=== PATIENT | female | born 1965 | race Caucasian/White ===

== ENCOUNTER → 2021-07-13 14:28 | Outpatient (CLI) | payer OTHER ==
[~2021-07-13 14:28] MED LIST: COZAAR25 MG PO; SYNTHROID137 MCG PO; VYTORIN 10-20 M1 TAB PO
== END | disposition home or self-care (01) ==
LOC: NUCLEAR 06-18 13:00
PROVIDERS: ATTEND Obstetrics & Gynecology
DX: M81.0 Age-related osteoporosis without current pathological fracture (principal)

== ENCOUNTER 2021-10-26 11:38 | Outpatient (CLI) | payer OTHER | END 2021-10-26 11:48 | disposition home or self-care (01) | LOC: RAD 11:38 | DX: M46.96 Unspecified inflammatory spondylopathy, lumbar region (principal); M17.12 Unilateral primary osteoarthritis, left knee ==

== ENCOUNTER 2023-07-08 13:12 | Outpatient (CLI) | payer OTHER | END 2023-07-08 13:13 | disposition home or self-care (01) | LOC: NUCLEAR 13:12 | DX: M81.0 Age-related osteoporosis without current pathological fracture (principal) ==